=== PATIENT | female | born 1955 | race African-American/Black ===

== ENCOUNTER 2016-10-06 20:35 | Inpatient (IN) | payer OTHER ==
--- NOTE | ~2016-10-06 | CR72 ---
[facility] A Service of [facility] & [facility] RADIOLOGY TEXT RESULTS PATIENT: KRISTIN MEDEIROS LOCATION: [facility] [id number] : [birth year] UNIT #: [id number] AGE: [address]: Bradley Silva MD SEX: F ORDER DR: [id number] [facility] [address] [facility]. [place], [place] [address] [id number] I MR#: [id number] Acc #: [id number] NAME: KRISTIN MEDEIROS. : 1955 SEX: F STUDY DATE/TIME: 10/06/2016 21:19 UNIT: [facility] ROOM: [id number] STUDY DESCRIPTION: CR Chest Single View Portable Attending Physician: Bradley Silva M.D. Ordering Physician: Rod Diane M.D. Primary Care Physician: Kota Sousa M.D. MEDICAL IMAGING REPORT This report is preliminary unless electronic signature is present EXAM Portable chest HISTORY Shortness of air and wheezing for 1 week. FINDINGS Near-complete dense opacification of the right upper lung is new compared to 08/08/2015. This could be secondary to a combination of pneumonia and atelectasis and loculated fluid. There is also a new patchy infiltrate in the lateral right base and minimal fluid in the right base. Moderately large hiatal hernia. Left lung is clear. Remainder of the chest is stable. Dictated by... Blane Oneal M.D. THIS IS AN ELECTRONICALLY VERIFIED REPORT Blane Oneal M.D. at 10/07/2016 3:00 PM DFL/shane TD: 10/07/2016 03:51 JOB #: [id number] MEDICAL IMAGING REPORT Page 1 of 1 COPY
--- NOTE | ~2016-10-06 | CR72 ---
[facility] A Service of [facility] & [facility] RADIOLOGY TEXT RESULTS PATIENT: KRISTIN MEDEIROS LOCATION: [address]02 : [birth year] UNIT #: [id number] AGE: [address]: Bradley Silva MD SEX: F ORDER DR: [id number] [facility] [address] [facility]. [place], [place] [address] [id number] I MR#: [id number] Acc #: [id number] NAME: KRISTIN MEDEIROS. : 1955 SEX: F STUDY DATE/TIME: 10/08/2016 05:04 UNIT: [facility] ROOM: [facility] STUDY DESCRIPTION: CR Chest Single View Portable Attending Physician: Bradley Silva M.D. Ordering Physician: Linden Johnson M.D. Primary Care Physician: Kota Sousa M.D. MEDICAL IMAGING REPORT This report is preliminary unless electronic signature is present EXAM Portable chest 10/08/2016 at 05:04 INDICATION Right upper lobe pneumonia and shortness of air. FINDINGS AP portable chest is compared with 10/06/2016. Cardiomegaly is stable. Densely consolidating pneumonia in the right upper lobe is minimally improved. Infiltrates in the right base are unchanged. There is some atelectasis now noted at the left base. There is a potential lung nodule in the left upper lobe. Attention on followup recommended. Dictated by... Jamey Oh Jr., M.D. THIS IS AN ELECTRONICALLY VERIFIED REPORT Jamey Oh Jr., M.D. at 10/09/2016 5:23 AM ROCHELLE/mirella TD: 10/08/2016 21:38 JOB #: [id number] MEDICAL IMAGING REPORT Page 1 of 1 COPY
--- NOTE | ~2016-10-06 | EKG ---
PATIENT: KRISTIN MEDEIROS UNIT #: [id number] Ventricular Rate: 144 BPM Atrial Rate: 144 BPM P-R Interval: 114 ms QRS Duration: 76 ms Q-T Interval: 272 ms QTC Calculation(Bezet): 421 ms P Boody: 55 degrees Calculated R Boody: 57 degrees Calculated T Boody: 21 degrees Diagnosis Line: Sinus tachycardia Diagnosis Line: Possible Left atrial enlargement Diagnosis Line: Left ventricular hypertrophy with repolarization Diagnosis Line: abnormality Diagnosis Line: Abnormal ECG Diagnosis Line: When compared with ECG of 08-AUG-2015 18:02, Diagnosis Line: Vent. rate has increased BY 64 BPM Diagnosis Line: Inverted T waves have replaced nonspecific T wave Diagnosis Line: abnormality in Inferior leads Diagnosis Line: Confirmed by OLGA CEDENO MD ([id number]) on Diagnosis Line: 10/09/2016 8:33:53 AM INTERPRETING MD: WILIAN WHEELER
--- NOTE | ~2016-10-06 | CR72 ---
[facility] A Service of [facility] & [facility] RADIOLOGY TEXT RESULTS PATIENT: KRISTIN MEDEIROS LOCATION: [address] : [birth year] UNIT #: [id number] AGE: [address]: Leela Jacob MD SEX: F ORDER DR: [id number] [facility] [address] [place], [place] [address] [id number] I MR#: [id number] Acc #: [id number] NAME: KRISTIN MEDEIROS : 1955 SEX: F STUDY DATE/TIME: 10/09/2016 03:24 UNIT: [facility] ROOM: [facility] STUDY DESCRIPTION: CR Chest Single View Portable Attending Physician: Bradley Silva M.D. Ordering Physician: Linden Johnson M.D. Primary Care Physician: Kota Sousa M.D. MEDICAL IMAGING REPORT This report is preliminary unless electronic signature is present EXAM Portable chest, 10/09 at 03:24 INDICATION Pneumonia and shortness of air. FINDINGS AP portable chest is compared with 10/08/2016. Cardiomegaly is stable. There is a hiatal hernia. There is atelectasis or infiltrate at the left base, increasing. Dense consolidation in the right upper lobe with less dense consolidation at the right base appears stable. There is a small right pleural effusion. No pneumothorax. Dictated by... Jamey Oh Jr., M.D. THIS IS AN ELECTRONICALLY VERIFIED REPORT Jamey Oh Jr., M.D. at 10/09/2016 5:19 PM ROCHELLE/julia TD: 10/09/2016 10:48 JOB #: [id number] MEDICAL IMAGING REPORT Page 1 of 1 COPY
--- NOTE | ~2016-10-06 | DS ---
Unit #: [id number] #: [id number] Patient: KRISTIN MEDEIROS [id number] [address] [place], [place] [address] [id number] I MR#: [id number] NAME: KRISTIN MEDEIROS. ROOM: 304 Age: 61 Sex: F Admission Date: 10/07/2016 : 1955 Discharge Date: 10/12/2016 Attending Physician: Leela Jacob M.D. Primary Care Physician: Kota Sousa M.D. DISCHARGE SUMMARY DISCHARGE DIAGNOSES 1. Acute hypoxemic respiratory failure which is resolving. 2. Acute exacerbation of chronic obstructive pulmonary disease also resolving. 3. Pneumonia. 4. Streptococcus pneumoniae bacteremia. 5. Metabolic acidosis which is better and resolving. 6. Status post nephrology evaluation. 7. Anemia of chronic disease, stable. 8. Elevated liver enzymes with fatty liver. DISCHARGE MEDICATIONS 1. Levaquin 750 mg p.o. daily for 6 more days. 2. Ventolin one or two puffs q.4 h. p.r.n. for shortness of air. 3. Medrol Dosepak. 4. Flonase nasal spray daily. 5. Prednisone eye drops daily. 6. Amitriptyline 50 mg daily. 7. Loratadine 10 mg daily. 8. Timolol eye drops daily. 9. Adonay eye ointment daily. 10. Guaifenesin 600 mg b.i.d. 11. Lisinopril home dose daily. 12. Brimonidine eye drops daily. 13. Restasis eye drops b.i.d. 14. Naprosyn 500 mg p.o. b.i.d. p.r.n. for pain and body aches. 15. Protonix 40 mg daily. 16. Tudorza 400 mcg inhaler b.i.d. FOLLOWUP 1. With primary care physician in 2 to 3 days. 2. With pulmonary as an outpatient. CONSULTANTS Dr. Deborah Hannon, pulmonary. DIAGNOSTIC STUDIES AND PROCEDURE 1. Chest x-ray on admission near complete dense opacification of the right upper lung, new compared to previous exam. 2. CT chest without contrast also shows pneumonia. 3. Right upper quadrant ultrasound shows fatty liver. 4. Last chest x-ray from 10/10/2016 shows dense consolidation throughout the right upper lobe. 5. Blood culture 1 out of 2 showed Streptococcus pneumoniae. Unit #: [id number] #: [id number] Patient: KRISTIN MEDEIROS 6. Sputum culture so far pending and negative. 7. Urine culture negative. HISTORY Please refer to History and Physical done by me for initial presentation of this female. HOSPITAL COURSE Acute hypoxemic respiratory failure secondary to pneumonia and acute exacerbation of COPD. Patient was treated with bronchodilators, IV steroids, IV antibiotics. Status post evaluation per Pulmonary, currently stable. Respiratory failure resolved. COPD resolved. Okay from my standpoint to be discharged on p.o. Levaquin for 6 more days. Streptococcus pneumoniae bacteremia. Continue Levaquin. Afebrile. White count 16,000 although patient was on IV steroids. No signs of sepsis. Metabolic acidosis, status post evaluation by Nephrology, Dr. Batres. Stable. Discharge date bicarb is 26. BUN 12, creatinine 0.2. Anemia of chronic disease. Discharge hemoglobin 8.8 and hematocrit 27.8. Elevated LFTs. Status post right upper quadrant ultrasound which shows fatty liver. DISCHARGE MEDICATIONS As above. DISPOSITION As above. The patient refuses any PT or OT evaluation. Refuses any thoughts of rehab. Therefore, is being discharged home. She lives with her son. Dictated by... Tien Beltre M.D. ARRON/benson TD: 10/12/2016 21:21 JOB #: [id number] DISCHARGE SUMMARY Page 1 of 1 X Tien Beltre MD X DISCHARGE SUMMARY
--- NOTE | ~2016-10-06 | CO ---
Unit #: [id number] #: [id number] Patient: KRISTIN MEDEIROS [id number] [address] [place], [place] [address] [id number] I MR#: [id number] NAME: KRISTIN MEDEIROS. ROOM: 06897 Age: 61 Sex: F Admission Date: 10/07/2016 : 1955 Attending Physician: Bradley Silva M.D. Primary Care Physician: Kota Sousa M.D. CONSULTATION REPORT REASON FOR CONSULTATION Critical care management and healthcare-acquired pneumonia, sepsis. CHIEF COMPLAINT Shortness of breath. HISTORY OF PRESENT ILLNESS The patient basically is a 61-year-old female with a past medical history significant for COPD, anemia, hypertension, legally blind, presents with a complaint of shortness of breath and was found to have severe pneumonia in the right upper lobe and currently on BiPAP requiring two pressors. I am seeing the patient at the bedside. She is responsive, awake, follows commands. PHYSICAL EXAMINATION VITAL SIGNS: Temperature currently is 98, pulse 88, respirations 22, blood pressure is 103/67. NEUROLOGICAL: She is awake, follows commands. CVS: S1+ S2. RESPIRATIONS: Bilateral air entry, bilateral mild rhonchi. GI: Nontender, soft. Bowel sounds positive. EXTREMITIES: No edema. DIAGNOSTIC STUDIES Labs and imaging have been reviewed. LABORATORY: White count is 23, hemoglobin 9, hematocrit 29, platelet count is 190. ASSESSMENT AND PLAN 1. Acute respiratory failure. 2. Severe pneumonia. 3. Acute exacerbation of chronic obstructive pulmonary disease. Plan is to continue BiPAP. She may need intubation. Continue IV fluids, GI and DVT prophylaxis and patient will be closely monitored. May need a bronchoscopy as well. Will order flu screen as well. Please see orders for detailed plan. Thank you very much for this consultation. Unit #: [id number] #: [id number] Patient: KRISTIN MEDEIROS Dictated by... Nelson Garcia TD: 10/07/2016 10:12 JOB #: [id number] CONSULTATION REPORT Page 1 of 1 X Linden Johnson MD CONSULTATION REPORT
--- NOTE | ~2016-10-06 | US6 ---
[facility] A Service of [facility] RADIOLOGY TEXT RESULTS PATIENT: KRISTIN MEDEIROS LOCATION: [facility] 304-01 : [birth year] UNIT #: [id number] AGE: [address]: Leela Jacob MD SEX: F ORDER DR: [id number] [facility] [address] [facility]. [place], [place] [address] [id number] I MR#: [id number] Acc #: [id number] NAME: KRISTIN MEDEIROS : 1955 SEX: F STUDY DATE/TIME: 10/11/2016 8:07 UNIT: [address] ROOM: [facility] STUDY DESCRIPTION: US Abdominal Limited Attending Physician: Leela Jacob M.D. Ordering Physician: Tien Beltre M.D. Primary Care Physician: Kota Sousa M.D. MEDICAL IMAGING REPORT This report is preliminary unless electronic signature is present EXAM Right upper quadrant ultrasound 10/11/2016 HISTORY Abnormally elevated liver enzymes on 10/11/2016. FINDINGS The liver demonstrates an increase in echotexture with attenuation of the ultrasound beam characteristic of fatty infiltration. No cystic or solid mass lesions were seen in the liver. The intra and extrahepatic bile ducts are not dilated. The gallbladder is normal with no evidence of cholelithiasis, wall thickening or pericholecystic fluid. The common duct measures 6 mm. The pancreas and right kidney are normal. Note is made of a small right pleural effusion. IMPRESSION 1. Fatty infiltration of the liver. 2. Normal gallbladder. 3. Right pleural effusion. Dictated by... Mane Park M.D. THIS IS AN ELECTRONICALLY VERIFIED REPORT Mane Park M.D. at 10/17/2016 8:07 AM SITA/era TD: 10/11/2016 09:32 JOB #: [id number] MEDICAL [facility]AGING REPORT [facility] Service [facility] RADIOLOGY TEXT RESULTS PATIENT: KRISTIN MEDEIROS LOCATION: [facility] 304- : [birth year] UNIT #: [id number] AGE: [address]: Leela Jacob MD SEX: F ORDER DR: Page 1 of 1 COPY
--- NOTE | ~2016-10-06 | CR63 ---
[facility] A Service of [facility] & [facility] RADIOLOGY TEXT RESULTS PATIENT: KRISTIN MEDEIROS LOCATION: [facility] 304-01 : [birth year] UNIT #: [id number] AGE: [address]: Leela Jacob MD SEX: F ORDER DR: [id number] [facility] [address] [facility]. [place], [place] [address] [id number] I MR#: [id number] Acc #: [id number] NAME: KRISTIN MEDEIROS : 1955 SEX: F STUDY DATE/TIME: 10/10/2016 7:12 UNIT: [address] ROOM: [facility] STUDY DESCRIPTION: CR Chest 2 View Attending Physician: Leela Jacob M.D. Ordering Physician: Linden Johnson M.D. Primary Care Physician: Kota Sousa M.D. MEDICAL IMAGING REPORT This report is preliminary unless electronic signature is present EXAM PA and lateral chest, 10/10. HISTORY Followup right upper lobe pneumonia. COMPARISON STUDIES 10/09 FINDINGS A portable view of the chest is compared with yesterday's study. The left lung is clear. There is dense consolidation throughout the right upper lobe. There is patchy infiltrate in the right lower lobe which is stable. Dictated by... Xavier Marie M.D. THIS IS AN ELECTRONICALLY VERIFIED REPORT Xavier Marie M.D. at 10/10/2016 9:43 AM DIANNE/dominik TD: 10/10/2016 09:10 JOB #: [id number] MEDICAL IMAGING REPORT Page 1 of 1 COPY
--- NOTE | ~2016-10-06 | HP ---
Unit #: [id number] #: [id number] Patient: KRISTIN BETTS [id number] [facility]. [place], [place] [address] [id number] I MR#: [id number] NAME: KRISTIN BETTS. ROOM: 304 Age: 61 Sex: F Admission Date: 10/07/2016 : 1955 Attending Physician: Leela Jacob M.D. Primary Care Physician: Kota Sousa M.D. HISTORY AND PHYSICAL NOTE Please note that patient was admitted on October 07 and accidentally she was put in the system under Dr. Silva's name, therefore patient was not showing up on my list, nor have I gotten any notice from the floor or any other physicians the patient was supposed to be admitted under my service till today, therefore I am seeing patient aoo-pum-h-half days later for the first time. ADMISSION DIAGNOSES 1. Acute hypoxemic respiratory failure. 2. Pneumonia. 3. Acute exacerbation of chronic obstructive pulmonary disease. HISTORY OF PRESENT ILLNESS It looks like Ms. Betts presented to the emergency room with the complaints of shortness of air and dyspnea. Patient was found with the acute hypoxemic respiratory failure, was started on BiPAP, bronchodilators, patient was evaluated and followed by corporate travel agent Dr. Johnson on this hospitalization. She was treated with empiric antibiotics, bronchodilators, steroids. Currently she denies any other symptoms, states her shortness of air has gotten better. She denies any chest pain, denies any headache, dizziness, fever, chills, nausea, vomiting, diarrhea or abdominal pain. REVIEW OF SYSTEMS A 12-point review of systems on this patient is basically negative except as above. PAST MEDICAL HISTORY Past medical history is significant for a history of: 1. Asthma and COPD. 2. Hypertension. 3. Allergic rhinitis. 4. Legally blind. PAST SURGICAL HISTORY Past surgical history is significant for: 1. Hysterectomy. 2. Corneal implant. 3. Right knee arthroscopy. 4. EGD and colonoscopy. CURRENT MEDICATIONS Unit #: [id number] #: [id number] Patient: KRISTIN BETTS Current medications on this female include: 1. Solu-Medrol 40 IV t.i.d. 2. Lovenox 40 mg subcu daily. 3. Combivent inhaler q.i.d. 4. Guaifenesin 600 mg b.i.d. 5. Brimonidine eye drops. 6. Timoptic eye drops. 7. Pred Forte eye drops. 8. Restasis eye drops. 9. Ceftriaxone 2 g IV daily. 10. Protonix IV daily. 11. IV fluids with the D5 normal. ALLERGIES Fish products, egg and banana. SOCIAL HISTORY No current history of tobacco, alcohol or illicit drugs. FAMILY HISTORY Unremarkable. PHYSICAL EXAMINATION GENERAL: Patient is a 61-year-old -[place] female not in acute distress. VITAL SIGNS: BP 110/56. Heart rate 67. Respirations 18. Temperature 97.4. HEENT: Head is atraumatic. Pupils unable to be assessed secondary to corneal implants. No pupillary reflexes secondary to corneal implants I should say. Oropharynx clear. NECK: Neck is supple. No mass. No JVD. No bruits. CHEST: Chest is diminished bilaterally. CARDIOVASCULAR: S1, S2. No murmurs. ABDOMEN: Abdomen is soft, obese, nontender, nondistended. EXTREMITIES: Lower extremities are without any significant cyanosis, clubbing or edema. NEUROLOGIC: Neurologically again patient is legally blind. No focal neuro deficits. DIAGNOSTIC STUDIES LABORATORY: This morning's chemistry is significant for blood glucose 190, AST and ALT at 48 and 62, white count 19,000 and hemoglobin and hematocrit 8.6 and 27.5. Blood culture from admission showed Streptococcus pneumoniae. Sputum culture (1) pending. Urine culture no growth at 48 hours. IMAGING: Her chest x-ray on admission: Near-complete dense opacification of the right upper lung. Likely a combination of pneumonia and atelectasis and loculated fluid. Left lung is clear. CT of the chest which was done also on admission: Dense right upper lobe consolidation consistent with pneumonia with a right pleural effusion. Chest x-ray from today shows still dense consolidation throughout the right upper lobe. ASSESSMENT 1. Acute hypoxemic respiratory failure. Unit #: [id number] #: [id number] Patient: KRISTIN BETTS 2. Pneumococcal pneumonia with bacteremia. 3. Acute exacerbation of chronic obstructive pulmonary disease. 4. Hypertension. 5. Leukocytosis. 6. Anemia of chronic disease. 7. Elevated liver function tests. 8. Continue current GI and DVT prophylaxis. PLAN 1. Will continue Rocephin. 2. Continue bronchodilators, IV steroids. 3. Will change IV fluids to normal saline. 4. Check the right upper quadrant ultrasound secondary to elevated LFTs. 5. Check procalcitonin level. 6. Check hemoglobin A1C. I will be following the patient throughout this hospitalization beginning today. Dictated by Tien Beltre M.D. OC/cf TD: 10/10/2016 18:48 JOB #: [id number] HISTORY AND PHYSICAL Page 1 of 1 X Tien Beltre MD X HISTORY AND PHYSICAL
--- NOTE | ~2016-10-06 | CO ---
Unit #: [id number] #: [id number] Patient: KRISTIN MEDEIROS [id number] [address] [place], [place] [address] [id number] I MR#: [id number] NAME: KRISTIN MEDEIROS. ROOM: 304 Age: 61 Sex: F Admission Date: 10/07/2016 : 1955 Attending Physician: Leela Jacob M.D. Primary Care Physician: Kota Sousa M.D. Consultation Date: 10/12/2016 CONSULTATION REPORT REASON FOR CONSULTATION Acidosis and MAYANK. The patient is a 61-year-old -Portuguese female with admission for shortness of breath, diagnosed with pneumonia, elevated procalcitonin level and acidosis, previously legally blind, hypertension, COPD, anemia. The patient's admission white count was 23 with a platelet count of 190. PAST MEDICAL HISTORY Significant for: 1. Hypertension. 2. COPD. 3. Legally blind. 4. No previous history of needing dialysis. REVIEW OF SYSTEMS CVS: No chest pain. RESPIRATORY: As above. GI: As above. : As above. PAST SURGICAL HISTORY Significant for: 1. Hysterectomy. 2. Corneal implant. 3. Right knee arthroscopy. ALLERGIES Fish products, egg and banana. SOCIAL HISTORY Does not drink or smoke. FAMILY HISTORY Unremarkable for end stage renal disease. PHYSICAL EXAMINATION GENERAL: The patient is awake, alert, and oriented. VITAL SIGNS: Temperature is 98.1, heart rate is 61/minute, the blood pressure is 151/86, saturation 99%. HEENT: Head is atraumatic. Sclerae are anicteric. NECK: Supple. There is no elevation of the JVD. CHEST: Clear. Air entry is equal bilaterally. Breathing is vesicular in nature. Unit #: [id number] #: [id number] Patient: KRISTIN MEDEIROS HEART: S1, S2 audible. There is no S3, no S4. ABDOMEN: Soft. There is no organomegaly. No guarding, no rigidity, no rebound tenderness. No edema. MOTOR SYSTEM: Intact. CEREBELLAR SYSTEM: Intact. DIAGNOSTIC STUDIES LABORATORY: On admission, sodium 141, potassium 3.1, chloride is 106, CO2 is 22, BUN is 33, creatinine is 1.7, calcium is 8.5, glucose is 149, albumin is 2.4. Lactic acid is 5.6. ABG has a pH of 7.47, pCO2 is 32, pO2 is 65. BNP of 210. WBC 16.9, H and H 10.9 and 34.6 with a platelet count of 234. Yesterday his potassium was 2.7 with a CO2 of 17, chloride of 119, calcium 5.6. IMPRESSION 1. Non-anion gap metabolic acidosis/hyperchloremic, possibly secondary to diarrhea and normal saline therapy: Will switch to ringers lactate, start oral sodium bicarbonate, check urinary anion gap. 2. Acute kidney injury has improved with hydration and resolution of sepsis. 3. Potassium hypokalemia supplement: Potassium and recheck, possible lower GI losses. 4. Hypocalcemia, likely vitamin D deficiency: Will follow on that. 5. Pneumonia. 6. Urinary tract infection. 7. Sepsis. 8. Chronic obstructive pulmonary disease. 9. Acute respiratory failure. Dictated by... Nelson Pollock TD: 10/12/2016 09:41 JOB #: [id number] CONSULTATION REPORT Page 1 of 1 X Henrique Hannon MD CONSULTATION REPORT
--- NOTE | ~2016-10-06 | CT57 ---
[facility] A Service of [facility] & [facility] RADIOLOGY TEXT RESULTS PATIENT: KRISTIN MEDEIROS LOCATION: [address] : 57 UNIT #: [id number] AGE: [address]: Bradley Silva MD SEX: F ORDER DR: [id number] [facility] [address] [place], [place] [address] [id number] MR#: [id number] #: [id number] NAME: KRISTIN MEDEIROS. : 1955 SEX: F STUDY DATE/TIME: 10/07/2016 10:09 UNIT: [facility] ROOM: [facility] STUDY DESCRIPTION: CT Chest Wo Cont Attending Physician: Bradley Silva M.D. Ordering Physician: Linden Johnson M.D. Primary Care Physician: Kota Sousa M.D. MEDICAL IMAGING REPORT This report is preliminary unless electronic signature is present EXAM CT of the chest without contrast. INDICATIONS Shortness of breath and weakness for 1 week. Pneumonia and sepsis. TECHNIQUE CT of the chest was performed without contrast. Coronal and sagittal reformatted images were obtained. This CT exam was performed with one or more of the following radiation dose reduction techniques: automatic exposure control, adjustment of mA and/or kV according to patient size, and iterative reconstruction. COMPARISON Comparison is made with yesterday's chest x-ray. FINDINGS There is a dense consolidation within the right upper lobe most consistent with pneumonia and compared with the chest x-ray, it does not appear significantly changed. There also consolidations located within the right middle lobes, and right lower lobes, as well as a small right pleural effusion. There is a small area of consolidation in the left upper lobe. There are patchy areas of tree-in-bud nodularity in the left lower lobe and lingula also likely reflective of pneumonia. There are enlarged mediastinal and hilar lymph nodes which are likely reactive given the findings in the lungs. There is a large hiatal hernia. Limited imaging of the upper abdomen is unremarkable. Bone windows are unremarkable. IMPRESSION There is a dense right upper lobe consolidation consistent with pneumonia. There are consolidations elsewhere within the right lung as well as a small right pleural effusion, and some minimal infiltrate in the left lung. Overall the findings are most consistent with the patient's history [facility] A Service of [facility] RADIOLOGY TEXT RESULTS PATIENT: KRISTIN MEDEIROS LOCATION: [place] [address] : 57 UNIT #: [id number] AGE: [address]: Bradley Silva MD SEX: F ORDER DR: of pneumonia. Follow up to clearing is recommended. Dictated by... Sabas Carvajal M.D. THIS IS AN ELECTRONICALLY VERIFIED REPORT Sabas Carvajal M.D. at 10/08/2016 3:47 PM MARY ANNE/tutu TD: 10/07/2016 21:57 JOB #: [id number] MEDICAL IMAGING REPORT Page 1 of 1 COPY
[~2016-10-06 20:35] MED LIST: ACETAMINOPHEN PO; ALBUTEROL17 GM INH; ALBUTEROL2.5 MG/0.5 IH; ALPHAGAN P10 ML OD; ALPHAGAN P5 ML OP; AMITRIPTYLINE H50 MG PO; AMITRYPTYLINE PO; BACTRIM DS TABL1 TA1 PO; CLARITIN10 M2 PO; CLARITIN10 MG PO; FLONASE ALLERG9.9 ML; FLONASE16 GM; HCTZ PO; IPRATROPIUM0.2 MG/ML NEB; LACRI-LUBE S.O3.5 GM OS; LISINOPRIL10 MG PO; MUCINEX100 MG/BOX PO; MURO-12815 M1 OP; NAPROSYN500 MG PO; PRED FORTE1 ML OP; PREDNISONE PO; PREDNISONE1 MG; PREDNISONE10 MG PO; PREMARIN PO; PROTONIX PO; RESTASIS32 EA OP; SINGULAIR PO; SULF-PRED 10-0.10 ML OD; SYMBICORT INH; SYMBICORT80 INH; TIMOPTIC2.5 ML OD; TIMOPTIC5 ML OP; TUDORZA PRESS400 MCG IH; ZITHROMAX500 MG PO; ZOFRAN PO
[2016-10-06 21:20] LABS: ARTERIAL BLOOD GAS pH 7.473 (7.350-7.450)
[2016-10-06 21:21] LABS: ARTERIAL BLD GAS O2 SATURATION 94.2 % (90.0-100.0); ARTERIAL BLOOD GAS ALLEN TEST NORMAL; ARTERIAL BLOOD GAS ART SITE LEFT BRACHIAL; ARTERIAL BLOOD GAS CARBOXY HB 1.4 %sat (0.0-9.0); ARTERIAL BLOOD GAS DELIVERY NASAL CANNULA; ARTERIAL BLOOD GAS HCO3 23.7 mmol/L; ARTERIAL BLOOD GAS MET HB 0.5 %sat (0.0-2.0); ARTERIAL BLOOD GAS PCO2 32.3 mmHg (35.0-45.0); ARTERIAL BLOOD GAS PO2 65.2 mmHg (80.0-100); ARTERIAL DRAW? YES
[2016-10-06 21:28] LABS: BASOPHIL# 0.1 X10e3 (0-0.3); BASOPHIL% 0.4 % (0-2.5); EOSINOPHIL# 0.3 X10e3 (0-0.7); EOSINOPHIL% 1.9 % (0.0-7.0); HEMATOCRIT 34.6 % (35.0-45.0); HEMOGLOBIN 10.9 gm/dL (12.0-16.0); LYMPHOCYTE# 0.6 X10e3 (1.0-3.5); LYMPHOCYTE% 3.3 % (17.0-45.0); MEAN CELL VOLUME 88.8 FL (83-96); MEAN CORPUSCULAR HEMOGLOBIN 27.9 PG (28-34); MEAN CORPUSCULAR HGB CONC 31.4 g/dL (30-36); MEAN PLATELET VOLUME 9.8 FL (6.5-11.5); MONOCYTE# 0.8 X10e3 (0-1.0); MONOCYTE% 4.5 % (3.0-12.0); NEUTROPHIL# 15.2 X10e3 (1.5-7.1); NEUTROPHIL% 89.9 % (40-75); PLATELET COUNT 234 X10e3 (140-420); RED CELL DISTRIBUTION WIDTH 14.7 % (11.0-15.5); WHITE BLOOD COUNT 16.9 X10e3 (4.0-10.5)
[2016-10-06 21:29] LABS: DIFF IND YES
[2016-10-06 21:47] LABS: ALBUMIN SERUM 2.4 g/dL (3.5-5.0); BUN/CREATININE RATIO 19.41; CALCIUM SERUM 8.5 mg/dL (8.4-10.2); CREATININE SERUM 1.7 mg/dL (0.6-1.4); GLOM FILT RATE Estimated 37.3 mL/min (>60); POTASSIUM 3.1 mmol/L (3.5-5.1); PROTEIN TOTAL SERUM 7.1 g/dL (6.0-8.3)
[2016-10-06 22:18] LABS: ANISOCYTOSIS SL; PLATELET ESTIMATE NORMAL (NORMAL)
[2016-10-06 22:19] LABS: HYPOCHROMIA SL
[2016-10-06 23:36] LABS: POC - CKMB 3.8 ng/mL (0.0-7.9); POC - TROPONIN <0.05 ng/mL (<=0.05)
[2016-10-07] MEDS ORDERED: RESTASIS1 EACH OU (03:32)
[2016-10-07] MEDS ORDERED: MURO-1283.5 G1 OU (03:35)
[2016-10-07] MEDS ORDERED: PRED FORTE1 ML OU (03:36)
[2016-10-07] MEDS ORDERED: BRIMONIDINE TART5 ML OU (03:42)
[2016-10-07] MEDS ORDERED: TIMOPTIC5 ML OU (03:43)
[2016-10-07] MEDS ORDERED: NAPROSYN-EC500 M1 PO (03:44)
[2016-10-07] MEDS ORDERED: FLONASE 0.05% N16 G1 (03:44)
[2016-10-07] MEDS ORDERED: LISINOPRIL10 MG PO (03:45)
[2016-10-07] MEDS ORDERED: AMITRIPTYLINE H50 MG PO (03:45)
[2016-10-07] MEDS ORDERED: ALLERCLEAR10 MG PO (03:46)
[2016-10-07] MEDS ORDERED: MELOXICAM15 MG PO (03:46)
[2016-10-07] MEDS ORDERED: PANTOPRAZOLE SO40 MG PO (03:47)
[2016-10-07] MEDS ORDERED: TUDORZA PRESS400 MCG INH (03:47)
[2016-10-07] MEDS ORDERED: ALBUTEROL17 GM INH (03:48)
[2016-10-07 04:41] LABS: URINE SOURCE CLEAN CATCH
[2016-10-07 04:58] LABS: URINE APPEARANCE TURBID; URINE BLOOD TRACE (NEG); URINE COLOR ORANGE; URINE GLUCOSE NEG (NEG); URINE KETONE NEG (NEG); URINE LEUKOCYTE ESTERASE 2+ (NEG); URINE NITRATE POS (NEG); URINE PROTEIN 1+ (NEG); URINE SPECIFIC GRAVITY 1.023 (1.003-1.035)
[2016-10-07 05:03] LABS: CULTURE INDICATED? YES; URINE BACTERIA AUWI NEG (NEGATIVE); URINE SQUAMOUS EPITHELIAL CELL MOD /[HPF]; UWBCS1 AUWI 25-50 (0-5)
[2016-10-07 05:19] LABS: URINE BILIRUBIN POS (NEG)
[2016-10-07 05:26] LABS: BASOPHIL% 0.1 % (0-2.5); DIFF IND NO; EOSINOPHIL# 0.1 X10e3 (0-0.7); EOSINOPHIL% 0.3 % (0.0-7.0); HEMATOCRIT 29.3 % (35.0-45.0); HEMOGLOBIN 9.2 gm/dL (12.0-16.0); LYMPHOCYTE# 0.6 X10e3 (1.0-3.5); LYMPHOCYTE% 2.4 % (17.0-45.0); MEAN CELL VOLUME 89.7 FL (83-96); MEAN CORPUSCULAR HEMOGLOBIN 28.3 PG (28-34); MEAN CORPUSCULAR HGB CONC 31.5 g/dL (30-36); MEAN PLATELET VOLUME 9.7 FL (6.5-11.5); MONOCYTE# 0.7 X10e3 (0-1.0); NEUTROPHIL# 22.2 X10e3 (1.5-7.1); NEUTROPHIL% 94.2 % (40-75); PLATELET COUNT 190 X10e3 (140-420); RED BLOOD COUNT 3.26 X10e (3.90-5.30); WHITE BLOOD COUNT 23.5 X10e3 (4.0-10.5)
[2016-10-07 05:46] LABS: BUN/CREATININE RATIO 24.28; CALCIUM SERUM 7.4 mg/dL (8.4-10.2); CREATININE SERUM 1.4 mg/dL (0.6-1.4); GLOM FILT RATE Estimated 47.2 mL/min (>60); POTASSIUM 3.4 mmol/L (3.5-5.1)
[2016-10-07 11:42] LABS: ARTERIAL BLD GAS O2 SATURATION 95.7 % (90.0-100.0); ARTERIAL BLOOD GAS CARBOXY HB 0.7 %sat (0.0-9.0); ARTERIAL BLOOD GAS HCO3 19.6 mmol/L; ARTERIAL BLOOD GAS MET HB 0.5 %sat (0.0-2.0); ARTERIAL BLOOD GAS PCO2 34.8 mmHg (35.0-45.0); ARTERIAL BLOOD GAS PO2 87.7 mmHg (80.0-100); ARTERIAL BLOOD GAS pH 7.359 (7.350-7.450)
[2016-10-07 11:43] LABS: ARTERIAL BLOOD GAS ALLEN TEST NORMAL; ARTERIAL BLOOD GAS ART SITE RIGHT RADIAL; ARTERIAL DRAW? YES
[2016-10-07 11:53] LABS: INFLUENZA A NEG (NEG); INFLUENZA B NEG (NEG)
[2016-10-08 04:14] LABS: ARTERIAL BLD GAS O2 SATURATION 95.3 % (90.0-100.0); ARTERIAL BLOOD GAS CARBOXY HB 1.2 %sat (0.0-9.0); ARTERIAL BLOOD GAS HCO3 22.1 mmol/L; ARTERIAL BLOOD GAS MET HB 0.6 %sat (0.0-2.0); ARTERIAL BLOOD GAS PCO2 33.7 mmHg (35.0-45.0); ARTERIAL BLOOD GAS pH 7.424 (7.350-7.450)
[2016-10-08 04:25] LABS: ARTERIAL BLOOD GAS ALLEN TEST NORMAL; ARTERIAL BLOOD GAS ART SITE LEFT RADIAL; ARTERIAL BLOOD GAS DELIVERY HEATED HIGH FLOW; ARTERIAL BLOOD GAS PO2 75.9 mmHg (80.0-100); ARTERIAL DRAW? YES
[2016-10-08 06:00] LABS: BASOPHIL% 0.2 % (0-2.5); DIFF IND NO; HEMATOCRIT 27.5 % (35.0-45.0); HEMOGLOBIN 8.8 gm/dL (12.0-16.0); LYMPHOCYTE# 0.4 X10e3 (1.0-3.5); LYMPHOCYTE% 1.6 % (17.0-45.0); MEAN CELL VOLUME 88.7 FL (83-96); MEAN CORPUSCULAR HEMOGLOBIN 28.3 PG (28-34); MEAN CORPUSCULAR HGB CONC 31.9 g/dL (30-36); MEAN PLATELET VOLUME 9.4 FL (6.5-11.5); MONOCYTE# 0.5 X10e3 (0-1.0); MONOCYTE% 1.9 % (3.0-12.0); NEUTROPHIL# 25.3 X10e3 (1.5-7.1); NEUTROPHIL% 96.3 % (40-75); PLATELET COUNT 227 X10e3 (140-420); RED CELL DISTRIBUTION WIDTH 15.1 % (11.0-15.5); WHITE BLOOD COUNT 26.3 X10e3 (4.0-10.5)
[2016-10-08 06:50] LABS: ALBUMIN SERUM 1.9 g/dL (3.5-5.0); BILIRUBIN,TOTAL 2.7 mg/dL (0.2-2.0); BUN/CREATININE RATIO 27.27; CALCIUM SERUM 7.7 mg/dL (8.4-10.2); CREATININE SERUM 1.1 mg/dL (0.6-1.4); GLOM FILT RATE Estimated 63.2 mL/min (>60); POTASSIUM 3.1 mmol/L (3.5-5.1); PROTEIN TOTAL SERUM 5.6 g/dL (6.0-8.3)
[2016-10-09 04:46] LABS: ARTERIAL BLD GAS O2 SATURATION 98.5 % (90.0-100.0); ARTERIAL BLOOD GAS CARBOXY HB 0.5 %sat (0.0-9.0); ARTERIAL BLOOD GAS HCO3 21.7 mmol/L; ARTERIAL BLOOD GAS MET HB 0.2 %sat (0.0-2.0); ARTERIAL BLOOD GAS PCO2 40.1 mmHg (35.0-45.0); ARTERIAL BLOOD GAS pH 7.342 (7.350-7.450)
[2016-10-09 04:47] LABS: ARTERIAL BLOOD GAS ALLEN TEST NORMAL; ARTERIAL DRAW? YES
[2016-10-09 04:47] LABS: BASOPHIL# 0.1 X10e3 (0-0.3); BASOPHIL% 0.4 % (0-2.5); HEMATOCRIT 27.8 % (35.0-45.0); HEMOGLOBIN 8.5 gm/dL (12.0-16.0); LYMPHOCYTE# 0.5 X10e3 (1.0-3.5); LYMPHOCYTE% 2.9 % (17.0-45.0); MEAN CELL VOLUME 90.7 FL (83-96); MEAN CORPUSCULAR HEMOGLOBIN 27.9 PG (28-34); MEAN CORPUSCULAR HGB CONC 30.7 g/dL (30-36); MEAN PLATELET VOLUME 9.7 FL (6.5-11.5); MONOCYTE# 0.9 X10e3 (0-1.0); MONOCYTE% 5.1 % (3.0-12.0); NEUTROPHIL# 16.5 X10e3 (1.5-7.1); NEUTROPHIL% 91.6 % (40-75); PLATELET COUNT 232 X10e3 (140-420); RED BLOOD COUNT 3.07 X10e (3.90-5.30); RED CELL DISTRIBUTION WIDTH 15.6 % (11.0-15.5); WHITE BLOOD COUNT 18.1 X10e3 (4.0-10.5)
[2016-10-09 04:48] LABS: ARTERIAL BLOOD GAS ART SITE RIGHT RADIAL; ARTERIAL BLOOD GAS DELIVERY NASAL CANNULA
[2016-10-09 04:51] LABS: DIFF IND NO
[2016-10-09 05:05] LABS: ALBUMIN SERUM 1.8 g/dL (3.5-5.0); BILIRUBIN,TOTAL 1.3 mg/dL (0.2-2.0); BUN/CREATININE RATIO 37.14; CALCIUM SERUM 7.8 mg/dL (8.4-10.2); CREATININE SERUM 0.7 mg/dL (0.6-1.4); GLOM FILT RATE Estimated 109.1 mL/min (>60); POTASSIUM 3.9 mmol/L (3.5-5.1); PROTEIN TOTAL SERUM 5.2 g/dL (6.0-8.3)
[2016-10-10 06:08] LABS: BASOPHIL% 0.2 % (0-2.5); HEMATOCRIT 27.5 % (35.0-45.0); HEMOGLOBIN 8.6 gm/dL (12.0-16.0); LYMPHOCYTE# 0.6 X10e3 (1.0-3.5); LYMPHOCYTE% 3.2 % (17.0-45.0); MEAN CELL VOLUME 89.6 FL (83-96); MEAN CORPUSCULAR HGB CONC 31.3 g/dL (30-36); MEAN PLATELET VOLUME 9.2 FL (6.5-11.5); MONOCYTE# 2.1 X10e3 (0-1.0); MONOCYTE% 11.2 % (3.0-12.0); NEUTROPHIL# 16.3 X10e3 (1.5-7.1); NEUTROPHIL% 85.4 % (40-75); PLATELET COUNT 266 X10e3 (140-420); RED BLOOD COUNT 3.06 X10e (3.90-5.30); RED CELL DISTRIBUTION WIDTH 15.4 % (11.0-15.5); WHITE BLOOD COUNT 19.1 X10e3 (4.0-10.5)
[2016-10-10 06:09] LABS: DIFF IND YES
[2016-10-10 06:38] LABS: ALBUMIN SERUM 1.7 g/dL (3.5-5.0); BUN/CREATININE RATIO 34.28; CALCIUM SERUM 7.7 mg/dL (8.4-10.2); CREATININE SERUM 0.7 mg/dL (0.6-1.4); GLOM FILT RATE Estimated 109.1 mL/min (>60); POTASSIUM 3.9 mmol/L (3.5-5.1); PROTEIN TOTAL SERUM 4.8 g/dL (6.0-8.3)
[2016-10-10 07:18] LABS: NUCLEATED RED BLOOD CELL 1 /100 (0)
[2016-10-10 07:19] LABS: PLATELET ESTIMATE NORMAL (NORMAL); RBC NORMAL YES
[2016-10-10 07:20] LABS: ANISOCYTOSIS SL; HYPOCHROMIA SL
[2016-10-11 07:53] LABS: HEMATOCRIT 26.2 % (35.0-45.0); HEMOGLOBIN 8.1 gm/dL (12.0-16.0); MEAN CELL VOLUME 90.4 FL (83-96); MEAN PLATELET VOLUME 9.3 FL (6.5-11.5); RED BLOOD COUNT 2.9 X10e (3.90-5.30); WHITE BLOOD COUNT 20.5 X10e3 (4.0-10.5)
[2016-10-11 09:07] LABS: ALBUMIN SERUM 1.3 g/dL (3.5-5.0); BILIRUBIN,TOTAL 0.5 mg/dL (0.2-2.0); BUN/CREATININE RATIO 32.5; CREATININE SERUM 0.4 mg/dL (0.6-1.4); GLOM FILT RATE Estimated 131.2 mL/min (>60); PROTEIN TOTAL SERUM 3.9 g/dL (6.0-8.3)
[2016-10-11 09:09] LABS: PROCALCITONIN 1.24 NG/ML
[2016-10-11 09:20] LABS: POTASSIUM 2.7 mmol/L (3.5-5.1)
[2016-10-11 09:21] LABS: CALCIUM SERUM 5.6 mg/dL (8.4-10.2)
[2016-10-11 22:08] LABS: URINE SOURCE CLEAN CATCH
[2016-10-11 22:13] LABS: URINE APPEARANCE CLEAR; URINE BILIRUBIN NEG (NEG); URINE BLOOD TRACE (NEG); URINE COLOR YELLOW; URINE GLUCOSE >1000 MG/DL (NEG); URINE KETONE NEG (NEG); URINE LEUKOCYTE ESTERASE NEG (NEG); URINE NITRATE NEG (NEG); URINE PH 6.5 (5-8); URINE PROTEIN NEG (NEG); URINE SPECIFIC GRAVITY 1.018 (1.003-1.035); URINE UROBILINOGEN 0.2 MG/DL (NEG)
[2016-10-11 22:14] LABS: POTASSIUM,URINE RANDOM 20 mmol/L; SODIUM URINE RANDOM 98 mmol/L
[2016-10-11 22:16] LABS: URINE BACTERIA AUWI NEG (NEGATIVE); URINE SQUAMOUS EPITHELIAL CELL NONE SEEN /[HPF]
[2016-10-12 04:57] LABS: HEMATOCRIT 27.8 % (35.0-45.0); HEMOGLOBIN 8.8 gm/dL (12.0-16.0); MEAN CELL VOLUME 88.6 FL (83-96); MEAN CORPUSCULAR HEMOGLOBIN 28.1 PG (28-34); MEAN CORPUSCULAR HGB CONC 31.7 g/dL (30-36); MEAN PLATELET VOLUME 8.8 FL (6.5-11.5); RED BLOOD COUNT 3.13 X10e (3.90-5.30); RED CELL DISTRIBUTION WIDTH 14.9 % (11.0-15.5); WHITE BLOOD COUNT 16.9 X10e3 (4.0-10.5)
[2016-10-12 05:58] LABS: CALCIUM SERUM 7.2 mg/dL (8.4-10.2); CREATININE SERUM 0.5 mg/dL (0.6-1.4); GLOM FILT RATE Estimated 121.9 mL/min (>60); MAGNESIUM 1.8 mg/dL (1.6-3.0); POTASSIUM 3.9 mmol/L (3.5-5.1)
[2016-10-12] MEDS ORDERED: LEVAQUIN750 MG PO (19:59)
[2016-10-12] MEDS ORDERED: HUMIBID-LA600 MG PO (20:01)
[2016-10-12] MEDS ORDERED: MEDROL DOSEPAK4 MG PO (20:02)
== END 2016-10-12 21:37 | disposition home or self-care (01) | DRG 189 ==
LOC: CED 20:35 → CEDOF 10-07 00:26 → CICCU2 10-07 00:26 → C3A PCU 10-07 00:26 → CED 10-07 00:47 → CEDOF 10-07 00:47 → CICCU2 10-07 15:00 → C3A PCU 10-09 19:26
PROVIDERS: Emergency Medicine; Hospitalist; Internal Medicine; Physician Assistant Medical
DX: J96.01 Acute respiratory failure with hypoxia (principal); J13 Pneumonia due to Streptococcus pneumoniae; N17.9 Acute kidney failure, unspecified; J44.0 Chronic obstructive pulmonary disease with (acute) lower respiratory infection; J44.1 Chronic obstructive pulmonary disease with (acute) exacerbation; E87.2 Acidosis; D63.8 Anemia in other chronic diseases classified elsewhere; K76.0 Fatty (change of) liver, not elsewhere classified; I10 Essential (primary) hypertension; R19.7 Diarrhea, unspecified; E87.6 Hypokalemia; E83.51 Hypocalcemia; E87.8 Other disorders of electrolyte and fluid balance, not elsewhere classified; H54.8 Legal blindness, as defined in USA; R94.5 Abnormal results of liver function studies; Z90.710 Acquired absence of both cervix and uterus; Z91.012 Allergy to eggs; Z91.018 Allergy to other foods
CPT/HCPCS: 36556; 36600; 71010; 71020; 71250; 76705; 80048; 80053; 80202; 81003; 82308; 82436; 82553; 82803; 83036; 83605; 83735; 83880; 84132; 84133; 84300; 84484; 85025; 85027; 87040; 87077; 87086; 87186; 87449; 87804; 87899; 93005; 94640; 94644; 94660; 94667; 94668; 94760; 94761; 96365; 96368; 96375; 97110; 97116; 97162; 97530; 99291; C9113; J0171; J0456; J0696; J1250; J1650; J1956; J2370; J2543; J2920; J2930; J3260; J3370; J3475; J3490